=== PATIENT | female | born 1980 | race Caucasian/White ===

== ENCOUNTER 2017-03-18 21:04 | Emergency (ER) | payer BC, OTHER ==
[~2017-03-18] VITALS: Wt 67.5 kg
[2017-03-18 22:44] LABS: URINE BLOOD (Dip) POC 2+ (NEGATIVE)
--- NOTE | 2017-03-19 00:06 | RADRPT ---
PROCEDURE: US Pelvis. CLINICAL INDICATION: Vaginal bleeding TECHNIQUE: Multiple sonographic images of the pelvis were obtained utilizing a transabdominal and endovaginal technique. The images were reviewed on a PACS workstation. COMPARISON: None available FINDINGS: Uterus: Normal in size, contour and echogenicity with no evidence for myometrial masses. Size is est imated at 8.3 x 5.3 x 4.1 cm. Cervix: No abnormalities of significance are seen. Endometrium: Normal in thickness; 4.4 mm. Right ovary / adnexa: Normal in size estimated at 2.3 x 2.2 x 1.4 cm. No evidence for masses, norm al blood flow on Doppler interrogation. Left ovary/adnexa: Normal in size estimated at 3.2 x 2.8 x 2 cm. No evidence for solid masses, norm al blood flow on Doppler interrogation. Cul-de-sac: No evidence of free fluid. RPTAT:HJJR IMPRESSION: Unremarkable pelvic ultrasound without findings to explain the patient's provided history. Physician Jean-Paul Date Time Electronically viewed and signed by Physician Jean-Paul on 03/19/2017 00:06 /
[2017-03-19 00:21] VITALS: BP 117/76; PULSE 101; RESP 20
--- NOTE | 2017-03-19 01:23 | ERA ---
ER Documentation Chief Complaint Date/Time DATE: 03/19/17 TIME: 01:20 Chief Complaint HEADACHE/DIZZINESS HEAVY BLEEDING W/ CLOTS X1 AT 11AM CURRENT FLOW NORM HPI This is a 36-year-old female complains of one episode of increased vaginal bleeding. Patient is currently on her menstrual cycle. Patient does not take any medications. Patient denies pain, fever, discharge, foul smell, diarrhea, constipation, hematuria, dysuria. Patient has no other complaints at this time. Patient has not taken any medication to relieve the symptoms. ROS All systems reviewed and are negative except as per history of present illness. PMhx/Soc Medical and Surgical Hx: pt denies Medical Hx, pt denies Surgical Hx Hx Alcohol Use: No Hx Substance Use: No Hx Tobacco Use: No Physical Exam Vitals Vital Signs Date Time Temp Pulse Resp B/P Pulse Ox O2 Delivery O2 Flow Rate FiO2 03/19/17 00:21 101 20 117/76 98 Room Air 03/18/17 21:09 100.3 108 20 134/70 98 Physical Exam Const: Well-appearing well-developed 36-year-old female presented with her boyfriend. Head: Atraumatic Eyes: Normal Conjunctiva. Extraocular movements intact. PERRLA. ENT: Normal External Ears, Nose and Mouth. Neck: Full range of motion..~ No meningismus. Resp: Clear to auscultation bilaterally Cardio: Regular rate and rhythm, no murmurs Abd: Soft, non tender, non distended. Normal bowel sounds. No suprapubic tenderness. Skin: No petechiae or rashes Back: No midline or flank tenderness Ext: No cyanosis, or edema Neur: Awake and alert Psych: Normal Mood and Affect Results 24 hrs Laboratory Tests Test 03/18/17 22:47 Bedside Urine pH (LAB) 7.0 Bedside Urine Protein (LAB) 1+ Bedside Urine Glucose (UA) Negative Bedside Urine Ketones (LAB) Negative Bedside Urine Blood 2+ Bedside Urine Nitrite (LAB) Negative Bedside Urine Leukocyte Esterase (L Negative Procedures/MDM Patient is a 36-year-old female being worked up for one episode of vaginal bleeding. Workup included urinalysis and urine test which were both unremarkable. Patient's signs and symptoms are most consistent with dysfunctional uterine bleeding. At this time a very low suspicion for pathologies, ovarian torsion, PID, or infectious pathology. Patient will be discharged with discharge instructions and return precautions. Patient' s vitals are stable and her current condition is appropriate for discharge. Departure Diagnosis: Primary Impression: Dysfunctional uterine bleeding Condition: Stable Patient Instructions: Dysfunctional Uterine Bleeding Additional Instructions: Follow up with your PCP within the next 1-3 days for a more thorough evaluation and a possible referral to a specialist. Return the the emergency department immediately if symptoms worsen or change. If you have any questions regarding medications, ask your pharmacist or us before you leave. If any adverse reactions occur while taking your medications, discontinue the treatment and return to the emergency department immediately. Take your medications as directed, and complete the entire course of treatment. KELLE ECKERT PA-C March 19, 2017 01:23
== END 2017-03-19 00:23 | disposition home or self-care (01) ==
LOC: FTE 21:04
DX: N93.8 Other specified abnormal uterine and vaginal bleeding (principal)
CPT/HCPCS: 36415; 76856; 81003

== ENCOUNTER 2018-12-27 05:03 | Emergency (ER) | payer SELFPAY ==
[~2018-12-27] VITALS: Ht 162.6 cm; Wt 63.1 kg
[2018-12-27 05:12] VITALS: BP 157/70; PULSE 107; RESP 20; Ht 162.6 cm; Wt 63.1 kg
== END 2018-12-27 05:25 | disposition left against medical advice (07) ==
LOC: FTE 05:03
DX: Z53.21 Procedure and treatment not carried out due to patient leaving prior to being seen by health care provider (principal)